=== PATIENT | male | born 1990 | race Caucasian/White ===

== ENCOUNTER → 2017-12-14 12:59 | Outpatient (CLI) | payer BC ==
--- NOTE | ~2017-12-14 | EC ---
PATIENT:SILVIA CAAL DATE OF SERVICE: 12/14/17 SEX: M MEDICAL RECORD: [id number] DATE OF : [birth year] LOCATION:D[facility] AGE OF PATIENT: 27 ADMISSION DATE: 12/14/17 REFERRING PHYSICIAN: INTERPRETING PHYSICIAN: JIGAR MCCOY MD ECHOCARDIOGRAM REPORT ECHO CHARGES 4 ECHO COMPLETE Date: 12/14 CLINICAL DIAGNOSIS: DYSPNEA/DIZZINESS/CP/ PALPITATIONS ECHOCARDIOGRAPHIC MEASUREMENTS (adult normal given) AC root (d.<3.7cm) 3.7 cm LV Septum d (<1.2 cm> 1.1 cm Valve Excursion 2.4 cm LV Septum (systole) 1.7 cm Left Atria (s.<4.0cm> 3.5 cm LVPW d(<1.2cm) 1.4 cm RV (d.<2.3cm) 2.9 cm LVPW (sytole) 2.1 cm LV diastole(<5.6CM) 5.7 cm MV E-F(>70mm/sec) cm LV systole 3.1 cm LVOT Diameter 2.2 cm MV exc.(>10mm) cm Est.ejection fraction (50-75%) % DOPPLER: LVIT cm/sec A 66.0 cm/sec E 89.0 cm/sec LA cm/sec RVSP 30.1 mmHg LVOT 119 cm/sec AOP1/2T m/s Asc. Ao 138 cm/sec RVOT 62.0 cm/sec RA cm/sec PA 86.0 cm/sec AV Gradient Peak 7.6 mmHg AV Mean 4.5 mmHg AV Area 2.8 cm MV Gradient Peak 3.6 mmHg MV Mean 1.6 mmHg MV Area cm COMMENTS: Cut Off Tender Glass: Alonso HRARISOE Offset Lithographic Press Operator: Josiah Mccoy TAPE# PACS Pericardial Effusion N DATE OF SERVICE: PROCEDURE: Transthoracic echocardiogram. FINDINGS: 1. The left ventricle shows mild left ventricular hypertrophy. Inflow characteristics are normal. Ejection fraction is 60% to 65%. There is mild left ventricular end-diastolic cavity dilatation. 2. The left atrium is normal size. 3. The right ventricle is mildly enlarged, normal function. ECHOCARDIOGRAM REPORT [id number] SILVIA CAAL 4. The aortic valve was difficult to visualize. There is good function. Trace aortic insufficiency. Possibility of bicuspid aortic valve is there. 5. The mitral valve is normal structure and function. 6. The tricuspid valve has mild tricuspid regurgitation. 7. The pulmonic valve has mild pulmonic insufficiency. 8. The pericardium is normal. 9. The right atrium is normal. There is color flow evidence of possible PFO. CONCLUSIONS: The patient has evidence of mild left ventricular hypertrophy, normal function. Possible bicuspid aortic valve with otherwise normal aortic valve function and minimal evidence of possible PFO by color flow. TRANSINT:[id number] Voice Confirmation ID: [id number] DOCUMENT ID: [id number] JIGAR MCCOY MD at 0735 CC: [id number] DICTATION DATE: 12/15/17 0656 BUSINESS ANALYST CONSULTANT: 12/15/17 0736 [facility] CLI 12/14/17 [facility] [address] [place] [address]
[2017-12-31 08:29] VITALS: BMI 31.3
== END | disposition home or self-care (01) ==
LOC: D.ECHO 12:59
DX: R06.00 Dyspnea, unspecified (principal); R42 Dizziness and giddiness; R07.9 Chest pain, unspecified; R00.2 Palpitations

== ENCOUNTER 2017-12-31 07:22 | Outpatient (CLI) | payer BC ==
[~2017-12-31] VITALS: Ht 177.8 cm; Wt 99.1 kg
--- NOTE | ~2017-12-31 | HEMODYNAMI ---
PATIENT:SILVIA CAAL MEDICAL RECORD: [id number] : [birth year] LOCATION:[facility] ADMISSION DATE: 12/31/17 Generatedon:12/31/20179:52 Patient name: SILVIA CAAL Patient #: [id number] SSN: DO B: 1990 Date of study: 12/31/2017 Page: Of Hemodynamic Procedure Report Patient Data Patient Demographics Procedure consent was obtained First Name: SILVIA Gender: Male Last Name: AFUA : 1990 [facility] Initial: BOGDAN Age: 27 year(s) Patient #: [id number] Race: Unknown Additional ID: [id number] Contact details Address: [address] [place] [address] [facility] State: [place] City: [place] Zip code: [address] Admission Admission Data Admission Date: 12/31/2017 Admission Time: 7:22 Admit Source: Other Procedure Procedure Types Cath Procedure Peripheral Cath Diagnostic Procedure Cath Peripheral Four Vessel Arteriogram Procedure Description Procedure Date Procedure Date: 12/31/2017 Procedure Start Time: 9:23 Procedure End Time: 9:46 Procedure Staff Name Function Leopoldo Mccoy MD Performing Physician Pina Hernandez RT Monitor Red David RT Scrub Arturo Mcneill RN Nurse Procedure Data Cath Procedure Fluoroscopy Diagnostic fluoroscopy Total fluoroscopy Time: 5.5 time: 5.5 min min Diagnostic fluoroscopy Total fluoroscopy dose: 347 dose: 347 mGy mGy Contrast Material Contrast Material Type Amount (ml) Isovue 300 147 Entry Location Entry Primary Successful Side Size Upsize Upsize Entry Closure Succes sful Closure Location (Fr) 1 (Fr) 2 (Fr) Remarks Device Remarks Femoral Right 5 Fr Exoseal artery Estimated blood loss: 5 ml Diagnostic catheters Device Type Used For End Catheter Placement DIAGNOSTIC 3DRC 5Fr Multi-vessel catheter ([id number]) Angiography DIAGNOSTIC Pigtail 5Fr Multi-vessel catheter ([id number]) Angiography Procedure Complications No complications Procedure Medications Medication Administration Route Dosage 0.9% NaCl I.V. 100 ml/hr Oxygen etCO2 Nasal cannula 2 l/min Heparin Flush Bag added to field 2 bags (1000units/500ml NS) Lidocaine 2% added to field 20 Versed I.V. 2 mg Fentanyl I.V. 50 mcg Hemodynamics Rest Heart Rate: 83 (bpm) Snapshots Pre Cath Intra NCS Post Cath Vital Signs Time Heart Resp SPO2 etCO2 NIBP (mmHg) Rhythm Pain Sedation Rate (ipm) (%) (mmHg) Status Level (bpm) 9:05:47 73 16 100 39.1 113/79(102) NSR 0 (11) 10(A) , No pain 9:10:27 77 19 99 40.6 110/64(91) NSR 0 (11) 10(A) , No pain 9:15:07 79 14 100 39 109/66(86) NSR 0 (11) 10(A) , No pain 9:20:23 81 19 100 40.5 104/68(87) NSR 0 (11) 10(A) , No pain 9:25:02 87 15 100 37.5 116/78(99) NSR 0 (11) 10(A) , No pain 9:29:40 85 16 100 35.3 114/70(95) NSR 0 (11) 10(A) , No pain 9:34:17 83 16 100 36.8 108/69(88) NSR 0 (11) 10(A) , No pain 9:38:53 87 16 100 35.3 113/71(92) NSR 0 (11) 10(A) , No pain 9:43:30 91 16 100 30 128/73(106) NSR 0 (11) 10(A) , No pain Medications Time Medication Route Dose Verified Delivered Reason Notes Effe ctiveness by by 9:09:44 0.9% NaCl I.V. 100 Arturo Arturo Per ml/hr Charito Mcneill physician RN RN 9:09:53 Oxygen etCO2 2 Arturo Arturo Per Nasal l/min Charito Mcneill physician cannula RN RN 9:10:07 Heparin Flush added 2 Arturo Arturo used for Bag to bags Charito Mcneill procedure (1000units/500ml field RN RN NS) 9:10:18 Lidocaine 2% added 20ml Arturo Arturo for local to vial Alixigan Charito anesthetic field RN RN 9:21:20 Versed I.V. 2 mg Arturo Arturo for Lorigan Lorigan sedation RN RN 9:21:28 Fentanyl I.V. 50 Arturo Arturo for mcg Lorigan Lormontana sedation RN membership coordinator Log Time Note 8:50:56 Admit Source: Other 8:51:17 Diagnostic Cath status Elective 8:51:20 Arturo Mcneill RN sent for patient. Start room use. 8:51:21 Time tracking: Regular hours (M-F 7:00 - 5:00) 8:51:26 Plan of Care:Hemodynamics will remain stable., Cardiac rhythm will remain stable., Comfort level will be maintained., Respiratory function will remain adequate., Patient/ family verbilizes understanding of procedure., Procedure tolerated without complication., Recovers from procedure without complications.. 8:52:42 H&P Date Dictated: 12/16/2017 Within 30 days and on chart.. 8:59:44 Patient received from Pre/Post Procedure Room to CCL 1 Alert and oriented. Tansferred to table in Supine position. 8:59:45 Warm blankets applied, and kindra hugger turned on for patient comfort. 8:59:45 Correct patient and procedure confirmed by team. 8:59:47 Signed procedure consent form obtained from patient. 8:59:48 ECG and BP/O2 sat monitors applied to patient. 9:04:56 Vital chart was started 9:04:57 Baseline sample Acquired. 9:05:00 Rhythm: sinus rhythm 9:05:02 Full Disclosure recording started 9:05:03 Pre-procedure instructions explained to patient. 9:05:04 Pre-op teaching completed and patient verbalized understanding. 9:05:06 Family in waiting room. 9:06:53 Patient NPO since Midnight. 9:06:56 Is the patient allergic to Iodine/contrast media? No. 9:06:57 Was the patient premedicated? No 9:06:59 Is patient on blood thinner?No 9:07:05 Patient diabetic? No. 9:07:08 Previous problem with sedation/anesthesia? No ? 9:07:10 Snore? No 9:07:11 Sleep apnea? No 9:07:13 Deviated septum? No 9:07:14 Opens mouth fully? Yes 9:07:14 Sticks out tongue? Yes 9:07:17 Airway obstruction? No ? 9:07:21 Dentures? No ? 9:07:25 Pre procedure: right dorsailis pedis pulse 1+ Palpable, but thready & weak; easily obliterated 9:07:27 Pre procedure: left dorsailis pedis pulse 1+ Palpable, but thready & weak; easily obliterated 9:07:29 Patient pain scale 0/10 ?. 9:07:35 IV patent on arrival in right forearm with 0.9% NaCl at [facility]. 9:07:38 Lab results completed and on chart. 9:07:42 Right groin area was prepped with chlora-prep and draped in sterile fashion 9:07:42 Alarms reviewed by R. N. 9:07:43 Sharps counted by scrub and verified by R.N. 9:09:44 0.9% NaCl 100 ml/hr I.V. was administered by Arturo Mcneill RN; Per physician; 9:09:53 Oxygen 2 l/min etCO2 Nasal cannula was administered by Arturo Mcneill RN; Per physician; 9:10:07 Heparin Flush Bag (1000units/500ml NS) 2 bags added to field was administered by Arturo Mcneill RN; used for procedure; 9:10:18 Lidocaine 2% 20ml vial added to field was administered by Arturo Mcneill RN; for local anesthetic; 9:17:05 Zero performed for pressure channel P1 9:19:31 Physician paged 9:20:05 Use device set Femoral Dx 9:20:08 ACIST Syringe (64974) opened to sterile field. 9:20:09 Bag Decanter (2001S) opened to sterile field. 9:20:11 Medline Cath Pack ([id number]) opened to sterile field. 9:20:11 DIAGNOSTIC WIRE .035 260cm J wire (469403) opened to sterile field. 9:20:18 ACIST Hand Control (53087) opened to sterile field. 9:20:19 ACIST Manifold (00030) opened to sterile field. 9:20:20 Tegaderm 4 x 4 (1626W) opened to sterile field. 9:20:22 MICROPUNCTURE 4FR [employer] ([id number]) opened to sterile field. 9:20:23 SHEATH Prelude 5Fr 0.035 ([id number]-5F-99-035) opened to sterile field. 9:20:46 --------ALL STOP TIME OUT------ 9:20:47 Final Timeout: patient, procedure, and site verified with staff and physician. All members of the team are in agreement. 9:20:49 Right groin site verified by team. 9::52 Physical assessment completed. ASA score P 2 - A patient with mild systemic disease as per Leopoldo Mccoy MD. 9::55 Sedation plan: IV Moderate Sedation Medication:Versed, Fentanyl 9:: Versed 2 mg I.V. was administered by Arturo Mcneill RN; for sedation; :: Fentanyl 50 mcg I.V. was administered by Arturo Mcneill RN; for sedation; ::24 Procedure started. 9:: Local anesthetic to right femoral artery with Lidocaine 2% by Leopoldo Mccoy MD.INITIAL ACCESS ONLY ::28 Access obtained with 4Fr micropunture. 9:26:38 A 5 Fr sheath was inserted into the Right Femoral artery 9:26:57 A DIAGNOSTIC 3DRC 5Fr catheter ([id number]) was advanced over the wire and used for Multi-vessel Angiography. 9:29:28 Bilateral carotid angiography performed. 9:29:36 Bilateral subclavian angiography performed 9:35:04 bilateral vertebral arteries selected 9:36:20 Catheter removed. 9:36:45 A DIAGNOSTIC Pigtail 5Fr catheter ([id number]) was advanced over the wire and used for Multi-vessel Angiography. 9:40:56 aortic root and arch visualized 9:41:41 Catheter removed. 9:42:18 EXOSEAL 5Fr (EX500) opened to sterile field. 9:43:09 Sheath removed intact; hemostasis achieved with Exoseal to the Right Femoral artery. 9:43:11 Procedure ended.(Physican Out) 9:43:23 Fluoroscopy time 05.50 minutes. :43:28 Fluoroscopy dose: 347 mGy 9:43:28 Flurop Dose total: 347 9::38 Contrast amount:Isovue 300 147ml. 9:43:42 Sharps counted by scrub and verified by R.N. 9:43:44 Insertion/operative site no bleeding no hematoma. 9:43:52 Post-op/insertion site Right Femoral artery dressed using a 4 x 4 and Tegaderm. 9:43:55 Post right femoral artery:stable 9:43:56 Post Procedure Pulses reassessed and unchanged 9:43:59 Post procedure rhythm: unchanged. 9:44:02 Estimated blood loss: 5 ml 9:44:04 Post procedure instruction explained to patient.Patient verbalizes understanding. 9:44:05 Patient needs reinforcement of post procedure teaching. 9:46:28 Procedure type changed to Cath procedure, Peripheral Cath Diagnostic Procedure, Cath Peripheral, Four Vessel Arteriogram 9:46:29 Procedure and supply charges have been captured, reviewed, submitted and are correct. 9:46:34 Procedure Complication : No complications 9:46:37 Vital chart was stopped 9:46:37 See physician's report for complete and final results. 9:46:42 Report given to Pre/Post Procedure Room. 9:46:45 Patient transfered to Pre/Post Procedure Room with Stretcher. 9:46:48 Procedure ended. 9:46:48 Full Disclosure recording stopped 9:46:51 End room use (Document Last) Device Usage Item Name Manufacture Quantity Catalog Number Hospital Part Current M inimal Lot# / Charge Number Stock Stock Serial# Code ACIST Syringe Acist 1 31835 [id number] 025909 189875 2 0 (21367) [employer] Bag Decanter Microtek 1 2001S 032381 11515 496103 5 (2001S) Medical Inc. Medline Cath Cardinal 1 [id number] 970388 27266 062391 5 Pack Health ([id number]) DIAGNOSTIC WIRE [address] [place] 1 086659 979199 959689 688450 3 0 .035 260cm J wire (329696) ACIST Hand Acist 1 87345 683498 796520 071167 5 Control (63685) [employer] Inc ACIST Manifold Acist 1 77724 061477 466750 531720 5 (76582) [employer] Inc Tegaderm 4 x 4 3M 1 1626W 347028 406517 826625 5 (1626W) MICROPUNCTURE Cook Medical 1 [id number] 945441 20011120 306663 5 4FR Cook ([id number]) SHEATH Prelude Merit 1 [id number] 377617 972813 813166 5 5Fr 0.035 Medical ([id number]-3Q-01-035) DIAGNOSTIC 3DRC Cardinal 1 [id number] 246980 961876 774406 9 5Fr catheter Health ([id number]) DIAGNOSTIC Cardinal 1 [id number] 203638 310243 587328 5 Pigtail 5Fr Health catheter ([id number]) EXOSEAL 5Fr Cardinal 1 EX500 212660 323650 328252 1 0 (EX500) Health Signature Audit [place] Stage Time Signature Unsigned Intra-Procedure 12/31/2017 Pina Hernandez 9:52:27 AM RT(R) Signatures Monitor : Pina Hernandez RT Signature : Date : Time : [place] [id number] [facility] [place] [address]
--- NOTE | ~2017-12-31 | OP ---
PATIENT NAME: SILVIA CAAL MEDICAL RECORD: [id number] :89 LOCATION:D.[facility] ADMISSION DATE: SURGEON: JIGAR MCCOY MD DATE OF OPERATION: 12/31/2017 PROCEDURE: Four-vessel angiogram, selective innominate artery angiogram, selective bilateral common carotid artery angiogram, selective right vertebral angiogram and right subclavian angiogram, and also aortic root angiography. AUTOMOTIVE PARTS SPECIALIST: Jigar Mccoy MD DESCRIPTION OF PROCEDURE: The patient was brought to cardiac catheterization lab in stable condition. Both groins were sterilely prepped and draped. The patient had a 5-Djiboutian sheath placed into the right common femoral artery in a retrograde fashion using modified Seldinger technique. Then with a 3D RCA, we selectively engaged the innominate artery, the right common carotid artery, the right vertebral artery, and the left common carotid artery. We then exchanged for a pigtail catheter. We did root angiography from an LATVIAN projection and then transverse aorta angiography from an LATVIAN projection in the descending thoracic aorta from LATVIAN projection. FINDINGS: The right common carotid artery is normal. The right internal and external carotid artery are normal. Intracerebral portion of the anterior circulation shows no crossover. The right subclavian artery is normal. The right vertebral artery was selectively engaged and shown to crossover and supply a flow into the left subclavian artery. The left common carotid artery is normal. Left external and internal carotid artery is normal. The Gan view shows a good midline flow and middle cerebral artery flow without crossover. The aortic root is mildly dilated. The left subclavian artery is absent. There is no gradient across the descending aorta and there is no residual coarctation visualized, appears to be multiple sources of collateralization into the left arm. 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 RECOMMENDATIONS: We could consider a carotid to subclavian bypass versus medical treatment. TRANSINT:[id number] Voice Confirmation ID: [id number] DOCUMENT ID: [id number] JIGAR MCCOY MD at 1011 CC: [id number] DICTATION DATE: 12/31/17 0955 SEMAPHORE OPERATOR: 12/31/17 1026 [facility] CLI 12/31/17 [facility] [address] [place] [address]
[2017-12-31 08:29] VITALS: BP 123/90; Ht 177.8 cm; Wt 99.1 kg
[2017-12-31 08:38] LABS: CALC OSMOLALITY 279 mosm/kg (275-300); CALCIUM 9.2 mg/dL (8.5-10.1); CARBON DIOXIDE 28.1 mmol/L (21.0-32.0); CHLORIDE - SERUM 105 mmol/L (98-107); CREATININE - SERUM 1.1 mg/dL (0.6-1.3); GLUCOSE 96 mg/dL (74-106); POTASSIUM - SERUM 4.1 mmol/L (3.5-5.1); SODIUM 139 mmol/L (136-145); UREA NITROGEN 18 mg/dL (7-18); eGFR NON AFRICAN AMERICAN 85 mL/min (90-120)
[2017-12-31 09:18] LABS: BASOPHILS 0.3 % (0-2); EOSINOPHILS 5.1 % (0-7); HEMOGLOBIN 16.3 g/dL (13.5-17.5); IMMATURE GRANULOCYTES 0.2 % (0-5); LYMPHOCYTES 36.1 % (15-50); MCHC 35.4 g/dL (31.0-37.0); MCV 90.4 fL (80.0-100.0); MEAN PLATELET VOLUME 12.3 fL (7.4-10.4); MONOCYTES 6.7 % (2-11); NEUTROPHILS 51.6 % (40-80); PLATELET COUNT 170 10x3/uL (130-400); RBC 5.09 10x6/uL (4.20-6.10); WBC 5.9 10x3/uL (4.8-10.8)
== END 2017-12-31 12:15 | disposition home or self-care (01) ==
LOC: D.CATH 07:22
PROVIDERS: Internal Medicine Cardiovascular Disease
DX: I77.819 Aortic ectasia, unspecified site (principal); R07.9 Chest pain, unspecified; Z01.812 Encounter for preprocedural laboratory examination